=== PATIENT | male | born 1995 | race Two or more races ===

== ENCOUNTER 2022-06-28 16:00 | Emergency (ER) | payer OTHER ==
[~2022-06-28] VITALS: Ht 177.8 cm; Wt 82.0 kg
[2022-06-28] MEDS ORDERED: HYDROcodone-ACET 5/325MG TAB PO ONE (17:00)
[2022-06-28] MEDS ORDERED: IBUP800T27 PO (19:35)
[2022-06-28] MEDS ORDERED: CYCL-837 PO (19:35)
[2022-06-28] MEDS ORDERED: KETOROLAC TROMETH 60MG/2ML VIAL IM ONE (19:45)
[2022-06-28 20:00] VITALS: BP 130/74
== END 2022-06-28 20:27 | disposition home or self-care (01) ==
LOC: ER 16:00 → EDBD 16:00 → ER 20:27
DX: S39.012A Strain of muscle, fascia and tendon of lower back, initial encounter (principal); X50.0XXA Overexertion from strenuous movement or load, initial encounter; Y93.89 Activity, other specified; Y92.89 Other specified places as the place of occurrence of the external cause; Y99.8 Other external cause status
CPT/HCPCS: 72131; 96372; 99284; J1885